=== PATIENT | female | born 1965 | race Caucasian/White ===

== ENCOUNTER 2023-05-15 11:35 | Outpatient (CLI) | payer OTHER, SELFPAY ==
--- NOTE | 2023-05-15 11:30 | CRLHL7_ITS ---
For Patients: As a result of the Century Cures Act, medical imaging exams and procedure reports are released immediately into your electronic medical record. You may view this report before your referring provider. If you have questions, please contact your health care provider. BILATERAL SCREENING MAMMOGRAM WITH COMPUTER-AIDED DETECTION AND TOMOSYNTHESIS TECHNIQUE: CC and MLO views were obtained. These mammographic images have been obtained using full-field digital technique. These mammographic images were interpreted with the benefit of computer-aided detection. Breast Tomosynthesis was used in this interpretation. COMPARISON FILM: 08/15/17, 02/05/13, 12/11/08. FINDINGS: The breasts are heterogeneously dense, which may obscure small masses IMPRESSION: There is no radiographic evidence for malignancy. ASSESSMENT: BI-RADS Category 1: Negative RECOMMENDATION: Routine screening mammogram in 1 year. A lay language report of this examination will be provided to the patient. Hai Rutherford M.D. Diagnostic Radiologist [email or web address] / be/Dictated by: Hai Rutherford MD @ 05/15/2023 12:56:00 PM (Electronically Signed)
== END 2023-05-15 11:36 | disposition home or self-care (01) ==
LOC: MAMMO 11:36
PROVIDERS: PCP Family Medicine; Visit Provider Physician Assistant
DX: Z12.31 Encounter for screening mammogram for malignant neoplasm of breast (principal); R92.2 Inconclusive mammogram
CPT/HCPCS: 77063; 77067

== ENCOUNTER 2023-06-13 08:25 | Outpatient (CLI) | payer OTHER, SELFPAY | END 2023-06-13 08:26 | disposition home or self-care (01) | PROVIDERS: PCP Family Medicine; Visit Provider Family Medicine | DX: Z00.00 Encounter for general adult medical examination without abnormal findings (principal); R03.0 Elevated blood-pressure reading, without diagnosis of hypertension; E78.5 Hyperlipidemia, unspecified; R53.83 Other fatigue | CPT/HCPCS: 80053; 80061 ==

== ENCOUNTER 2023-07-18 09:16 | Outpatient (CLI) | payer OTHER, SELFPAY ==
--- NOTE | 2023-07-18 09:15 | MR_ITS ---
[address] [address] Phone:?[phone] Fax:?[phone] Referring Physician Information: [place] [address] [facility] [address] Phone:?[phone] Fax:?[phone] Patient:?Stephenie Greene D.O.B:?1965 Sex:?Female Phone:?[phone] [facility] MRN:?[id number] Exam Date:?07/18/2023 EXAM: MRI of the RIGHT KNEE, without contrast CLINICAL INFORMATION: Female, 58 years old, with right knee pain. INDICATION: Evaluate for internal derangement. PRIOR SURGERY: None reported. PLAIN FILMS: None available. COMPARISONS: No prior MRIs available. TECHNICAL INFORMATION: Using a 1.5T MR scanner and a localizing surface coil: sagittals: PD, PDFS coronals: PD, STIR axials: PD, T2FS SEDATION: None CONTRAST: None FINDINGS: Knee joint: Effusion: Moderate right knee effusion. Popliteal cyst: Tiny, unruptured popliteal (Johnson's) cyst. Loose bodies: None. Subcutaneous and extra-articular soft tissues: Unremarkable. Ligaments: ACL: Intact ACL anteromedial and posterolateral bundles, without sprain or tear. PCL: Intact PCL, without acute or chronic injury. MCL: Mild thickening involving the proximal one third of the superficial MCL, without MCL tear (coronal PD series 7 image 16). LCL: Intact LCL, without injury. Posterolateral corner: Mild popliteus tendinopathy, without tear. Biceps femoris, iliotibial band, popliteofibular ligament and lateral gastrocnemius are intact. Posteromedial corner: No posteromedial corner soft tissue injury. Semimembranosus, pes anserine tendons and posterior oblique ligament are without injury, tendinopathy or bursitis. Extensor mechanism: Patellar tendon: Intact, without tendinopathy. Quadriceps tendon: Mild quadriceps insertional tendinopathy, without tear. Retinacula: Medial and lateral retinacula are intact. Fat pads: Mild edema-like signal is present throughout the knee fat pads. Medial compartment: Medial meniscus: Apical free edge and undersurface fraying/subtle tearing of the medial meniscal posterior horn measuring 1.1 cm (sagittal PD series 5 images 16- 19). Meniscal extrusion measures 3 mm. No parameniscal cyst. Medial femoral condyle & tibial plateau: Broad-based grade II chondromalacia throughout the central, weightbearing aspect of the medial compartment. Lateral compartment: Lateral meniscus: Intrasubstance degeneration and ill-defined intermediate grade partial tearing of the lateral meniscal posterior root measures 1.0 cm (sagittal PDFS series 6 images 11-14). Additionally, there is apical free edge and undersurface tearing of the anterior horn and body measuring 2.1 cm (sagittal PDFS series 6 images 710 and coronal STIR series 8 images 14-17). Lateral femoral condyle: Broad-based grade II chondromalacia of the central surface, with minimal marginal osteophytosis. Lateral tibial plateau: Broad-based grade II/III chondromalacia of the lateral tibial plateau, with mild marginal osteophytosis. Patellofemoral joint: Patella: Generalized grade III chondromalacia of the patella, with mild marginal osteophytosis. Trochlea: Generalized grade II chondromalacia of the trochlea, with mild marginal osteophytosis. Proximal tibiofibular joint: Unremarkable, without evidence of ligament sprain injury, joint effusion or adjacent marrow edema. Bones: No stress/occult fractures or other marrow edema/pathology. IMPRESSION: 1. Complex tear of the lateral meniscus, comprised of: -Intrasubstance degeneration and ill-defined intermediate grade partial tearing of the lateral meniscal posterior root measuring 1.0 cm. -Apical free edge and undersurface tearing of the anterior horn and body of the lateral meniscus measuring 2.1 cm. 2. Apical free edge and undersurface fraying/subtle tearing of the medial meniscal posterior horn measuring 1.1 cm, with 3 mm of meniscal extrusion. 3. 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 Minimal osteoarthritis of the medial compartment. 4. Moderate knee joint effusion with a tiny, unruptured popliteal (Johnson's) cyst. 5. Mild popliteus and quadriceps tendinopathy, without tear. 6. Chronic sequela low-grade proximal MCL sprain, without tear. 7. No ACL, PCL, or LCL sprain/tear. BC Electronically signed on 07/19/2023 8:33:00 AM by Charlie Aviles M.D.
== END 2023-07-18 09:17 | disposition home or self-care (01) ==
LOC: MRI 09:16
PROVIDERS: PCP Family Medicine; Visit Provider Physician Assistant
DX: M25.561 Pain in right knee (principal); S83.281A Other tear of lateral meniscus, current injury, right knee, initial encounter; M23.221 Derangement of posterior horn of medial meniscus due to old tear or injury, right knee; M25.461 Effusion, right knee; M17.11 Unilateral primary osteoarthritis, right knee; S83.411A Sprain of medial collateral ligament of right knee, initial encounter
CPT/HCPCS: 73721

== ENCOUNTER 2023-10-19 07:02 | Day surgery (SDC) | payer OTHER, SELFPAY ==
[2023-10-19] VITALS (11 sets, daily range): BP systolic 93–144; BP diastolic 66–95; PULSE 50–73; RESP 14–20; TEMP 35.8–36.5; O2SAT 95–100; BMI 28.7
[2023-10-19] MEDS: LACTATED RINGERS 1000 ML 1,000 ML 100 ML IV (07:30)
[2023-10-19] MEDS: SODIUM CHLORIDE 0.9 % (FLUSH) 10 ML SYRINGE IVF (07:36)
[2023-10-19] MEDS: CEFAZOLIN 2 GM INJ IVP (08:20)
--- NOTE | 2023-10-19 09:35 | P.ORPRC_ITS ---
Procedure Note Date of procedure: 10/19/23 Procedure: PREOPERATIVE DIAGNOSIS: Right knee lateral meniscus root tear, medial meniscus tear POSTOPERATIVE DIAGNOSIS: Right knee lateral meniscus root tear, medial meniscus tear NAME OF OPERATION: Right knee arthroscopic lateral meniscus root repair, partial medial meniscectomy, microfracture of the notch SURGEON: Gilmar Arroyo MD TRAINING ADMINISTRATOR: BILL Grimes ANESTHESIA: Spinal ESTIMATED BLOOD LOSS: 0 mL COMPLICATIONS: None SPECIMENS: None DRAINS: None PREOPERATIVE ANTIBIOTICS: Ancef 1 gram INDICATIONS: The patient is a 58-year-old female with a history of left knee posterior pain. MRI scan is consistent with a lateral meniscus root tear, medial meniscus tear. Despite appropriate nonoperative management, including activity modification, antiinflammatories, [id number] pain medication, bracing, physical therapy, and injections they continue to have pain and disability. Operative intervention was offered. The risks, benefits and expected outcomes were discussed in detail. These included but were not limited to: Infection, bleeding, injury to blood vessel or nerve, venous thromboembolism. All questions were answered to their satisfaction. PROCEDURE: Spinal anesthesia was administered. The patient was placed supine on the operating room table. The left lower extremity was prepped and draped in the usual sterile fashion. The limb was exsanguinated with the Nghia bandage. The pneumatic tourniquet was inflated to 300 mmHg. A standard anterolateral portal was established. The arthroscope was introduced. The working portal was established anteromedially. Diagnostic arthroscopy was performed with findings as follows: The suprapatellar pouch is normal. Articular surface on the patella shows grade 1/2 change. Articular surface on the trochlea shows diffuse grade 2/3 change. The medial gutter is normal. The medial compartment shows normal articular cartilage on the medial femoral condyle and medial tibial plateau. The medial meniscus has a degenerative tear of the posterior horn, consisting she of a small radial tear of the leading edge and some horizontal cleavage tearing. The notch shows the ACL to be intact. The lateral compartment shows normal articular cartilage on the lateral femoral condyle and lateral tibial plateau. The lateral meniscus has degenerative tearing of the posterior horn, at the posterior tibial attachment. The tissue quality here is quite poor with some redundancy of the lateral meniscus. The lateral gutter is normal. The posterior horn of the medial meniscus was debrided to a stable base using a combination of basket and shaver through both portals. The undersurface of the posterior horn of the lateral meniscus was debrided with the shaver. Once we debrided this poor quality tissue it was evident that the root was detached from the tibia. We therefore elected to proceed with lateral meniscus root repair. The knee scorpion was used to pass a fiber link x 2 in the posterior horn of the lateral meniscus. The tibial drill guide was used over the footprint of the root. A longitudinal incision over the anteromedial face of the tibia was placed. The flip cutter was drilled into the footprint. The flip cutter was flipped and back cut 10 mm. It was removed and exchanged for a fiber stick. The fiber stick was brought out the anteromedial portal and was used to shuttle both of the fiber link luggage tag sutures on the posterior horn out the anteromedial tibia. We then tensioned the sutures and fixed them to the tibia with a SwiveLock anchor. This provided an excellent repair of the posterior tibial attachment of the lateral meniscus to its anatomic footprint. The power pick was used to microfracture the notch both medially and laterally. Arthroscopic instruments were removed, the portal sites were Steri-Stripped closed, the incision over the tibia was closed with 3-0 Vicryl and 4-0 Monocryl. A dry dressing was applied, the tourniquet was released. Sponge and needle counts were correct x 2. The patient tolerated the procedure well. There were no apparent complications. They were carefully transferred to the hospital bed and taken to the postanesthesia care unit in satisfactory condition. PLAN: The patient will be discharged to home. They will be strict nonweightbearing on the lower extremity for 6 weeks postoperatively. Range of motion will be allowed from 0-90 degrees x 2 weeks then unrestricted range of motion. They will follow up in 2 weeks for a wound check.
--- NOTE | 2023-10-19 09:47 | W.ANESCHARGE ---
Anesthesia Charges Start Date/Time Anesthesia Start Date: 10/19/23 Anesthesia Start Time: 08:15 Stop Date/Time Anesthesia Stop Date: 10/19/23 Anesthesia Stop Time: 09:45
--- NOTE | 2023-10-19 10:33 | W.ANESCHARGE ---
Anesthesia Charges Start Date/Time Anesthesia Start Date: 10/19/23 Anesthesia Start Time: 08:15 Stop Date/Time Anesthesia Stop Date: 10/19/23 Anesthesia Stop Time: 09:45
== END 2023-10-19 11:53 | disposition home or self-care (01) ==
PROVIDERS: PCP Family Medicine; Visit Provider Orthopaedic Surgery
PROC: (CPT 29882; principal; 2023-10-19 08:15)
DX: M23.221 Derangement of posterior horn of medial meniscus due to old tear or injury, right knee (principal); M23.251 Derangement of posterior horn of lateral meniscus due to old tear or injury, right knee
CPT/HCPCS: 29881; 29882; 29879; 01400; C1713; J0690; J1100; J2250; J2405; J2704; J2795; J3010; J7120

== ENCOUNTER 2024-01-31 15:30 | Outpatient (RCR) | payer OTHER, SELFPAY | END 2024-01-31 16:45 | disposition home or self-care (01) | PROVIDERS: PCP Family Medicine; Visit Provider Physician Assistant | DX: Z98.890 Other specified postprocedural states (principal); M25.561 Pain in right knee; M25.661 Stiffness of right knee, not elsewhere classified; R26.2 Difficulty in walking, not elsewhere classified; M62.81 Muscle weakness (generalized); Z51.89 Encounter for other specified aftercare | CPT/HCPCS: 97110; 97116; 97140; 97161 ==

== ENCOUNTER 2025-02-10 08:55 | Outpatient (CLI) | payer OTHER, SELFPAY | END 2025-02-10 08:56 | disposition home or self-care (01) | LOC: NFLDREF 02-13 23:29 | PROVIDERS: PCP Family Medicine; Referring Provider Family Medicine; Visit Provider Family Medicine | DX: E78.5 Hyperlipidemia, unspecified (principal); Z13.9 Encounter for screening, unspecified | CPT/HCPCS: 80053; 80061 ==